=== PATIENT | male | born 1985 | race Caucasian/White ===

== ENCOUNTER 2021-06-19 04:45 | Emergency (ER) | payer OTHER ==
[~2021-06-19 04:45] MED LIST: AUGMENTIN 500-1 EACH PO; BENADRYL A12.5 MG/5 PO; MYLANTA MAXIMU355 ML PO
[2021-06-19] MEDS ORDERED: CYCLOBENZAPRINE5 MG PO (05:21)
[2021-06-19] MEDS ORDERED: MEDROL 4MG DOSEP4 MG PO (05:21)
== END 2021-06-19 05:40 | disposition home or self-care (01) ==
LOC: FER 04:45
DX: M54.50 Low back pain, unspecified (principal)
CPT/HCPCS: 99283; J1885

== ENCOUNTER 2021-06-27 13:40 | Emergency (ER) | payer OTHER ==
[~2021-06-27 13:40] MED LIST changes: +CYCLOBENZAPRINE5 MG PO; +MEDROL 4MG DOSEP4 MG PO
[2021-06-27 16:20] LABS: INFLUENZA A NAA NEGATIVE (NEGATIVE)
[2021-06-27 16:27] LABS: CORONAVIRUS 2019 SARS-COV-2 POSITIVE (NEGATIVE)
== END 2021-06-27 15:46 | disposition home or self-care (01) ==
LOC: FER 13:40
PROVIDERS: Physician Assistant
DX: U07.1 COVID-19 (principal)
CPT/HCPCS: 99283; U0002